=== PATIENT | female | born 1990 | race Caucasian/White ===

== ENCOUNTER 2025-05-18 01:09 | Emergency (ER) | payer MEDICAID, SELFPAY ==
[2025-05-18 01:24] VITALS: O2SAT 92
[2025-05-18 01:25] VITALS: BP 139/86; PULSE 104; O2SAT 97
[2025-05-18 01:30] VITALS: PULSE 102; TEMP 36.7; O2SAT 97
[2025-05-18 01:34] VITALS: BP 139/86; PULSE 102; RESP 18; TEMP 36.7; O2SAT 96; BMI 25.7
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
[2025-05-18] MEDS: TRIMETH/SULFA 160/800 (DS) TABLET 1 TAB PO (01:59)
[2025-05-18] MEDS: BACITRACIN OINT 0.9 GM PCKT 1 APPLIC TOP ×2 (01:59)
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
== END 2025-05-18 02:21 | disposition home or self-care (01) ==
PROVIDERS: Emergency Provider Emergency Medicine; Family Provider Family Medicine; PCP Family Medicine
DX: T20.00XD Burn of unspecified degree of head, face, and neck, unspecified site, subsequent encounter (principal); T21.02XD Burn of unspecified degree of abdominal wall, subsequent encounter; T24.031D Burn of unspecified degree of right lower leg, subsequent encounter; T31.0 Burns involving less than 10% of body surface
CPT/HCPCS: 99283